=== PATIENT | male | born 1985 | race African-American/Black ===

== ENCOUNTER 2017-03-30 15:08 | Emergency (ER) | payer MEDICAID ==
[~2017-03-30] VITALS: Ht 177.8 cm; Wt 81.0 kg
[~2017-03-30 15:08] MED LIST: ACET500C5 PO; AZIT250T94 PO; HYDR-906 PO; IBUP800T25 PO; NAPR-260 PO; ONDA4TAB11 PO; ONDA4TAB8 PO; UDROBDM PO
[2017-03-30 15:09] VITALS: Ht 177.8 cm; Wt 81.0 kg
[2017-03-30] MEDS ORDERED: AMOX1TAB10 PO (15:33)
[2017-03-30] MEDS ORDERED: IBUP-1542 PO (15:33)
--- NOTE | 2017-03-30 15:36 | ERD ---
ER Documentation Chief Complaint Date/Time DATE: 03/30/17 TIME: 15:34 Chief Complaint dog bite to rt leg yesterday HPI This 31-year-old male presents with a dog bite on the right calf sustained yesterday. His tetanus is not up-to-date. 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 He has a history of arthritis. Denies fevers, vomiting, shortness breath or chest pain or recent injury or trauma. denies any bowel or bladder incontinence or weakness. ROS All systems reviewed and are negative except as per history of present illness. Medications Home Meds Active Scripts Amoxicillin/Potassium Clav (Amox-Clav 875-125 mg Tablet) 875-125 mg Tab, 1 TAB PO BID for 5 Days, #14 TAB Prov:GREGORIA GLASOGW MD 03/30/17 Ibuprofen* (Motrin*) 600 Mg Tab, 600 MG PO Q6, #30 TAB Prov:GREGORIA GLASGOW MD 03/30/17 Hydrocodone/Acetaminophen ([place] 5-325 Tablet) 1 Each Tablet, 1 EACH PO Q6 for SEVERE PAIN LEVEL 7-10, #14 TAB Prov:DOROTEO DODD DO 10/16/16 Naproxen* (Naprosyn*) 500 Mg Tablet, 500 MG PO BID Y for PAIN AND/OR INFLAMMATION, #22 TAB Prov:DOROTEO DODD DO 10/16/16 Ondansetron (Zofran Odt) 4 Mg Tab.rapdis, 4 MG PO Q6, #8 Prov:DOROTEO DODD DO 10/16/16 Guaifenesin-Dextromethorphan* (Robitussin* DM) 100MG/10MG/5ML Syrup, 10 ML PO Q4H Y for COUGH for 5 Days, ML Prov:COLT ALANIZ PA-C 08/17/16 Ondansetron Hcl* (Zofran*) 4 Mg Tablet, 4 MG PO Q6H for NAUSEA AND/OR VOMITING, #30 TAB Prov:COLT ALANIZ PA-C 08/17/16 Azithromycin* (Zithromax*) 250 Mg Tablet, 250 MG PO .NavaPACK DIRECTED, #6 TAB TAKE 500 MG (2 TABS) THE FIRST DAY THEN 250 MG (1 TAB) DAYS 2-5 Prov:JUAN ALANIZFRANCESCO Rasmussen PA-C 08/17/16 Acetaminophen* (Tylophen*) 500 Mg Capsule, 2 CAP PO Q8H Y for PAIN AND OR ELEVATED TEMP, #30 CAP Prov:KATTYKALEEAlee Rasmussen PA-C 08/17/16 Ibuprofen* (Motrin*) 800 Mg Tab, 800 MG PO Q6, #30 TAB Prov:COLT ALANIZ PA-C 08/17/16 Allergies Allergies: Coded Allergies: No Known Drug Allergies (Verified Allergy, Mild, 04/25/10) PMhx/Soc History of Surgery: No Anesthesia Reaction: No Hx Neurological Disorder: No Hx Respiratory Disorders: No Hx Cardiac Disorders: No Hx Psychiatric Problems: No Hx Miscellaneous Medical Probl: No (DENIES MEDICAL AND SURGICAL HX.) Hx Alcohol Use: Yes (SOCIALLY) Hx Substance Use: No Hx Tobacco Use: Yes (CIGGARETES) Physical Exam Vitals Vital Signs Date Time Temp Pulse Resp B/P Pulse Ox O2 Delivery O2 Flow Rate FiO2 03/30/17 15:09 97.7 80 16 119/53 99 Physical Exam Const: [] Alert, not ill-appearing per Head: Atraumatic Eyes: Normal Conjunctiva ENT: Normal External Ears, Nose and Mouth. Neck: Full range of motion..~ No meningismus. Resp: Clear to auscultation bilaterally Cardio: Regular rate and rhythm, no murmurs Abd: Soft, non tender, non distended. Normal bowel sounds Skin: No petechiae or rashes. There is a scabbed set of puncture wounds of the right lateral calf. There is no warmth, induration and minimal tenderness. Back: No midline or flank tenderness Ext: No cyanosis, or edema Neur: Awake and alert Psych: Normal Mood and Affect Results 24 hrs Current Medications Medications (Trade) Dose Ordered Sig/Eyad Route PRN Reason Start Time Stop Time Status Last Admin Dose Admin Diphtheria/ Tetanus/Acell Pertussis (Adacel) 0.5 ml ONCE ONCE IM* 03/30/17 16:00 03/30/17 16:01 Procedures/MDM Patient presents with what appears to be healing dog bite his right calf. There is no evidence of cellulitis, abscess or deficits. He does have some chronic appearing changes at the MCP and PIP joints of extremities suggesting repetitive use tendinitis or arthritis. There is no signs or symptoms to suggest acute injury. We will given ibuprofen for presumed tendinitis and repetitive use pain of his extremities and a short course of Augmentin for dog bite. He was given a tetanus booster. He is advised to return for fevers, redness, new worsening symptoms otherwise seek the care of his primary doctor and orthopedist for persistent symptoms. Departure Diagnosis: Primary Impression: Dog bite Encounter type: initial encounter Qualified Code: W54.0XXA - Dog bite, initial encounter Condition: Stable Patient Instructions: Dog Bite, Tendonitis, Paraesthesias Additional Instructions: Recheck for redness, fevers, new symptoms to see orthopedist or primary doctor for neck pain and arm and hand pain. GREGORIA GLASGOW MD Mar 30, 2017 15:36
[2017-03-30] MEDS ORDERED: DIPHTH/TET/ACEL PERTUSS (ADULT) 0.5 ML VIAL IM* ONE (16:00)
== END 2017-03-30 16:01 | disposition home or self-care (01) ==
LOC: FTE 15:08
DX: S81.831A Puncture wound without foreign body, right lower leg, initial encounter (principal); F17.210 Nicotine dependence, cigarettes, uncomplicated; W54.0XXA Bitten by dog, initial encounter; Y92.9 Unspecified place or not applicable; Z23 Encounter for immunization
CPT/HCPCS: 90471; 90715

== ENCOUNTER 2017-04-02 07:43 | Emergency (ER) | payer MEDICAID ==
[~2017-04-02] VITALS: Ht 165.1 cm; Wt 85.0 kg
[~2017-04-02 07:43] MED LIST changes: +AMOX1TAB10 PO; +IBUP-1542 PO
[2017-04-02 07:46] VITALS: Ht 165.1 cm; Wt 85.0 kg
--- NOTE | 2017-04-02 09:13 | RADRPT ---
PROCEDURE: XR left shoulder. CLINICAL INDICATION: Pain TECHNIQUE: Axillary, Internal and external rotation views of the left shoulder were performed. COMPARISON: None. FINDINGS: There is normal osseous mineralization and alignment. No acute fracture or osseous lesion is identified. There are normal joints without evidence of arthritis or dislocation. The soft tissues are unremarkable. RPTAT: AA IMPRESSION: Unremarkable left shoulder. < .Shon Vazquez MD, MD Date Time Electronically viewed and signed by .Shon Vazquez MD, on 04/02/2017 09:12 .S/
--- NOTE | 2017-04-02 09:16 | RADRPT ---
PROCEDURE: XR Cervical Spine. CLINICAL INDICATION: pain TECHNIQUE: AP, lateral, swimmer's and odontoid views of the cervical spine were performed. The yaz ges were reviewed on a PACS workstation. COMPARISON: None. FINDINGS: The vertebral body alignment, height and osseous mineralization are normal. The intervertebral disc spaces are well maintained. There are no abnormal calcifications. The prevertebral soft tissues are normal. No radiopaque foreign bodies are identified. There is no acute fracture or subluxation. RPTAT: AA IMPRESSION: Normal cervical spine. .Shon Vazquez MD, Date Time Electronically viewed and signed by .Shon Vazquez MD, on 04/02/2017 09:16 .S/
[2017-04-02] MEDS ORDERED: NAPR-688 PO (09:18)
[2017-04-02] MEDS ORDERED: CYCL-319 PO (09:18)
--- NOTE | 2017-04-02 09:24 | ERD ---
ER Documentation Chief Complaint Date/Time DATE: 04/02/17 TIME: 09:20 Chief Complaint left shoulder pain HPI This is a 31-year-old male presenting to the emergency department with history of bilateral shoulder problems complaining of left shoulder pain for the past 2 weeks and numbness and tingling in the bilateral hands that come and go. Patient states the pain is moderate in severity, increased when he moves. Patient states that he is tried [id number]-[id number] medications without any relief. He denies any chest pain or shortness of breath. Patient states that he recently got bit by a dog 2 weeks ago and was given a tetanus shot in his left arm which caused him to have pain however last night the shoulder pain got worse. ROS All systems reviewed and are negative except as per history of present illness. Medications Home Meds Active Scripts Cyclobenzaprine Hcl* (Cyclobenzaprine Hcl*) 10 Mg Tablet, 10 MG PO TID, #9 TAB Prov:ANKITA VALENCIA PA-C 04/02/17 Naproxen* (Naproxen*) 500 Mg Tablet, 500 MG PO BID Y for PAIN, #30 TAB Prov:ANKITA VALENCIA PA-C 04/02/17 Amoxicillin/Potassium Clav (Amox-Clav 875-125 mg Tablet) 875-125 mg Tab, 1 TAB PO BID for 5 Days, #14 TAB Prov:GREGORIA GLASGOW MD 03/30/17 Ibuprofen* (Motrin*) 600 Mg Tab, 600 MG PO Q6, #30 TAB Prov:GREGORIA GLASGOW MD 03/30/17 Hydrocodone/Acetaminophen ([place] 5-325 Tablet) 1 Each Tablet, 1 EACH PO Q6 for SEVERE PAIN LEVEL 7-10, #14 TAB Prov:DOROTEO DODD DO 10/16/16 Naproxen* (Naprosyn*) 500 Mg Tablet, 500 MG PO BID Y for PAIN AND/OR INFLAMMATION, #22 TAB Prov:DOROTEO DODD DO 10/16/16 Ondansetron (Zofran Odt) 4 Mg Tab.rapdis, 4 MG PO Q6, #8 Prov:DOROTEO DODD DO 10/16/16 Guaifenesin-Dextromethorphan* (Robitussin* DM) 100MG/10MG/5ML Syrup, 10 ML PO Q4H Y for COUGH for 5 Days, ML Prov:COLT ALANIZC 08/17/16 Ondansetron Hcl* (Zofran*) 4 Mg Tablet, 4 MG PO Q6H for NAUSEA AND/OR VOMITING, #30 TAB Prov:COLT ALANIZC 08/17/16 Azithromycin* (Zithromax*) 250 Mg Tablet, 250 MG PO .ZPACK DIRECTED, #6 TAB TAKE 500 MG (2 TABS) THE FIRST DAY THEN 250 MG (1 TAB) DAYS 2-5 Prov:COLT ALANIZC 08/17/16 Acetaminophen* (Tylophen*) 500 Mg Capsule, 2 CAP PO Q8H Y for PAIN AND OR ELEVATED TEMP, #30 CAP Prov:COLT ALANIZC 08/17/16 Ibuprofen* (Motrin*) 800 Mg Tab, 800 MG PO Q6, #30 TAB Prov:COLT ALANIZC 08/17/16 Allergies Allergies: Coded Allergies: No Known Drug Allergies (Verified Allergy, Mild, 04/25/10) PMhx/Soc History of Surgery: No Anesthesia Reaction: No Hx Neurological Disorder: No Hx Respiratory Disorders: No Hx Cardiac Disorders: No Hx Psychiatric Problems: No Hx Miscellaneous Medical Probl: No (ARTHRITIS) Hx Alcohol Use: Yes (SOCIALLY) Hx Substance Use: Yes (mj) Hx Tobacco Use: Yes (CIGGARETES) Smoking Status: Former smoker Physical Exam Vitals Vital Signs Date Time Temp Pulse Resp B/P Pulse Ox O2 Delivery O2 Flow Rate FiO2 04/02/17 07:46 98.1 99 20 130/78 99 Physical Exam General: WD/WN, in no apparent distress, non-toxic appearing HENT: NC/AT Eyes: Conjunctiva normal Neck: Supple, patient had full range of motion of neck while he was talking, patient was nontender to palpation on the spine Pulm: Clear to auscultation, normal labored breathing; no wheezing/rales/ rhonchi heard CV: Good capillary refill GI: Non-distended, no guarding Back: No masses Ext: Tender palpation of the left shoulder, restricted range of motion due to pain Neuro: Moves on all fours, patient had full clinical trial coordinator of bilateral hand, cranial nerves II 12 intact, gait normal, Skin: intact Psych: Normal mood Procedures/MDM This is a 31-year-old male presenting to the emergency department with history of bilateral shoulder problems complaining of left shoulder pain for the past 2 weeks and numbness and tingling in the bilateral hands that come and go. Patient did not have any evidence of septic arthritis, cervical or left shoulder fracture or dislocation. Patient appears well, he is neurovascular intact. He had a normal neurological exam. Prior to my examination room he was on his phone, carrying his backpack. X-ray of the cervical spine was done and did not show any acute pathology no fracture or dislocation. X-ray of the left shoulder was done did not show any acute pathology including no fracture or dislocation. Patient was given Toradol in the ED. Patient is stable for discharge for home and appropriate to follow-up with his primary care physician for further evaluation mentioned. Prescription for naproxen and 3 days worth of Flexeril was provided. Discussed return to the ER for any worsening sinus symptoms. He understands and agrees with this plan Departure Diagnosis: Primary Impression: Shoulder pain Additional Impression: Paresthesia Condition: Stable Patient Instructions: Radiculopathy, Cervical, Paraesthesias, Shoulder Pain ( Uncertain Cause) Referrals: COMMUNITY CLINICS YOU HAVE RECEIVED A MEDICAL SCREENING EXAM AND THE RESULTS INDICATE THAT YOU DO NOT HAVE A CONDITION THAT REQUIRES URGENT TREATMENT IN THE EMERGENCY DEPARTMENT. FURTHER EVALUATION AND TREATMENT OF YOUR CONDITION CAN WAIT UNTIL YOU ARE SEEN IN YOUR DOCTORS OFFICE WITHIN THE NEXT 1-2 DAYS. IT IS YOUR RESPONSIBILITY TO MAKE AN APPOINTMENT FOR FOLOW-UP CARE. IF YOU HAVE A PRIMARY DOCTOR --you should call your primary doctor and schedule an appointment IF YOU DO NOT HAVE A PRIMARY DOCTOR YOU CAN CALL OUR PHYSICIAN REFERRAL HOTLINE AT IF YOU CAN NOT AFFORD TO SEE A PHYSICIAN YOU CAN CHOSE FROM THE FOLLOWING [facility] [address] [facility] [address] [facility]. [facility] [address] [facility] [address] [facility] [address] [facility]. [facility] [address] [place] [facility] URGENT CARE/SPECIALTIES Additional Instructions: FOLLOW UP WITH YOUR PRIMARY CARE PHYSICIAN TOMORROW.Return to this facility if you are not improving as expected. Take all medicines as directed. Return to this facility if you are not improving as expected. You have been given a medicine which may cause drowsiness.DO NOT DRIVE OR OPERATE DANGEROUS MACHINERY while taking this medicine! ANKITA VALENCIA PA-C Apr 02, 2017 09:24
== END 2017-04-02 09:32 | disposition home or self-care (01) ==
LOC: FTE 07:43
DX: M25.512 Pain in left shoulder (principal); R20.2 Paresthesia of skin; Z87.891 Personal history of nicotine dependence
CPT/HCPCS: 72040; 73030; Z7502